=== PATIENT | female | born 1945 | race Caucasian/White ===

== ENCOUNTER 2018-02-09 09:43 | Outpatient (CLI) | payer MEDICARE, BC ==
--- NOTE | 2018-02-09 12:23 | RAD ---
LUMBAR SPINE BENDING MINIMUM 4 VIEWS: HISTORY: Back pain and weakness. COMPARISON: None. FINDINGS: No AP radiographs were obtained. There is superior end plate height loss at L3 and L5, age indetermi ivania. There is degenerative grade I L2 over 3 retrolisthesis in the neutral position which is not changed w ith flexion or extension. There is grade I L3 over 4 anterolisthesis in the neutral position which i s relatively unchanged in flexion and extension given differences in angle of the radiograph. IMPRESSION: Multilevel spondylosis without significant translation with flexion or extension. POS: [facility]
== END 2018-02-09 09:44 | disposition home or self-care (01) ==
LOC: TBSIIMAG 09:43
PROVIDERS: ATTEND Surgery
DX: M47.26 Other spondylosis with radiculopathy, lumbar region (principal)
CPT/HCPCS: 72120